=== PATIENT | female | born 1980 | race Caucasian/White ===

== ENCOUNTER 2016-11-22 10:38 | Emergency (ER) | payer BC ==
[2016-11-22 10:46] VITALS: RESP 16; TEMP 98.2
[2016-11-22] MEDS ORDERED: SILVER NITRATE APPLICATOR 1 APPL TP ONE (11:58)
--- NOTE | 2016-11-22 12:06 | EDPHY ---
H & P Stated Complaint: epistaxis HPI/ROS: Chief complaint: Nose bleed History of present illness: This is a 36-year-old female who presents to the emergency department for evaluation of a nose bleed. Patient reports the onset of symptoms this morning. She states she is bleeding out of the left side of her nose. She used tampons to try to control bleeding, she went through multiple tampons, but bleeding never stopped. Upon arrival here a nasal clamp was placed in triage and on my evaluation she states bleeding has resolved. She does take aspirin daily. She does have a history of recurrent nose bleeds since he was a child. She does have an Ears Nose and Throat doctor that she normally sees but has not seen them in a while. She denies systemic symptoms such as dizziness, lightheadedness or fatigue. 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 No active bleeding. Right nare unremarkable. Oropharynx unremarkable. Skin: No lesions or rashes Neurologic: Alert and oriented x4. Ambulating without difficulty. Constitutional: Initial Vital Signs Temperature (C) 36.8 C 11/22/16 10:43 Heart Rate 72 11/22/16 10:43 Respiratory Rate 16 11/22/16 10:43 Blood Pressure 110/85 H 11/22/16 10:43 O2 Sat (%) 97 11/22/16 10:43 O2 Delivery Mode Room Air Allergies/Adverse Reactions: amoxicillin trihydrate [From Augmentin] Allergy (Mild, Verified 11/22/16 10:42) Diarrhea potassium clavula *RETIRED-06/22/12 [From Augmentin] Allergy (Mild, Verified 07/29 10:42) Diarrhea gadobenate dimeglumine [From Multihance] Allergy (Verified 11/22/16 10:42) Rash Home Medications: Medication Instructions Recorded Naturthroid 11/22/16 Medical Decision Making ED Course/Re-evaluation: Patient seen under the supervision of my secondary supervising physician Dr. Jaciel Mcneill. Patient presents to the emergency department for evaluation of a persistent nose bleed. On my evaluation bleeding has resolved. It does appear bleeding was coming from Kiesselbach's plexus. This area was cauterized to further prevent bleeding. She is discharged home. Home care is discussed. She is asked to follow up with her ENT doctor for further evaluation and care. Return precautions are given. Patient voiced understanding and agreement with plan. Departure - Departure Disposition: Home, Routine, Self-Care Clinical Impression: Epistaxis Condition: Good Instructions: Nosebleed (ED) Additional Instructions: Follow-up with your ears Nose and Throat doctor for continued care Use nasal saline spray and Vaseline as discussed If symptoms worsen or new symptoms develop return to the emergency department for recheck Referrals: Mohini Bermudez NP [Primary Care Provider] - As per Instructions Shantal Rizo MD [Medical Doctor] - As per Instructions
[2016-11-22 12:21] VITALS: BP 126/77; PULSE 76; O2SAT 95
== END 2016-11-22 12:30 | disposition home or self-care (01) ==
DX: R04.0 Epistaxis (principal); Z86.73 Personal history of transient ischemic attack (TIA), and cerebral infarction without residual deficits

== ENCOUNTER → 2017-11-13 | Outpatient (CLI) | payer BC | LOC: FIMAGING 10:40 | PROVIDERS: ATTEND Family Medicine | DX: M25.552 Pain in left hip (principal) ==

== ENCOUNTER → 2019-03-11 | Outpatient (CLI) | payer BC | LOC: FIMAGING 07:31 ==